=== PATIENT | female | born 1990 | race Caucasian/White ===

== ENCOUNTER → 2020-07-13 09:59 | Outpatient (CLI) | payer SELFPAY ==
--- NOTE | ~2020-07-13 | US_ITS ---
EXAMINATION: US breast LT limited HISTORY: Mastodynia TECHNIQUE: Limited left breast ultrasound was performed at the 9:00 location in the area of the patie nt's breast pain FINDINGS: There is no evidence of focal abnormal cystic or solid mass in the vicinity of the patient' s reported breast pain. IMPRESSION: No specific sonographic correlate is identified for the patient's breast pain. Further evaluation at this time should be based on clinical assessment. Continued follow-up physical examination is recomme nded. BI-RADS Category 1: Negative Reviewed, dictated and finalized at location A. IMPRESSION: No specific sonographic correlate is identified for the patient's breast pain. Further evaluation at this time should be based on clinical assessment. Continu ed follow-up physical examination is recommended. BI-RADS Category 1: Negative
== END ==
PROVIDERS: Visit Provider Obstetrics & Gynecology
DX: N64.4 Mastodynia (principal); R92.8 Other abnormal and inconclusive findings on diagnostic imaging of breast
CPT/HCPCS: 76642

== ENCOUNTER → 2021-04-28 12:24 | Outpatient (CLI) | payer OTHER, SELFPAY ==
--- NOTE | ~2021-04-28 | US_ITS ---
US renal BI 04/28/2021 12:57 Procedure: Realtime transabdominal ultrasound of the kidneys and bladder. Indication: Acute renal failure Comparison: No prior studies for comparison. Findings: Renal echotexture is normal bilaterally without contour deforming mass or renal calculus. T here is mild right hydronephrosis. The right kidney measures 9.8 cm and left kidney measures 9.7 cm. Bladder within normal limits. Bilateral ureteral jets are present. Impression: 1: Mild right hydronephrosis. Reviewed, dictated and finalized at location B. Impression: 1: Mild right hydronephrosis.
== END ==
PROVIDERS: PCP Physician Assistant; Visit Provider Physician Assistant
DX: N17.9 Acute kidney failure, unspecified (principal); N13.30 Unspecified hydronephrosis
CPT/HCPCS: 76775

== ENCOUNTER → 2021-05-23 14:08 | Outpatient (CLI) | payer OTHER, SELFPAY ==
--- NOTE | ~2021-05-23 | CT_ITS ---
EXAMINATION: CT abdomen pelvis wo/w con DATE: 05/23/2021 14:56 INDICATION: Hydronephrosis. TECHNIQUE: Computed tomography (CT) of the abdomen and pelvis was performed without and with 130 cc O mnipaque 350 intravenous contrast. The dose-length product was 953.08 mGy-cm. Automated exposure cont rol and iterative reconstruction technique were employed. COMPARISON: Ultrasound dated 04/28/2021. FINDINGS: Lung bases are unremarkable. Heart size normal. No significant pleural or pericardial effus ion. There is a right extrarenal pelvis. No significant hydronephrosis. No significant vascular abnor mality. No lymphadenopathy. Ureters are normal in course and caliber. No focal renal masses. Bladder is unremarkable. No significant pelvic masses or fluid collections. No free air or free fluid. The liver, spleen, pancreas, adrenal glands are unremarkable. Nonobstructive bowel gas pattern. No ev idence for hernia. No acute osseous abnormality. No renal stones. Gallbladder is present. IMPRESSION: 1. No significant hydronephrosis. Right extrarenal pelvis. Reviewed, dictated and finalized at location A.
[2021-05-23 14:32] LABS: Estimated Glomerular Filt Rate > 60
== END ==
PROVIDERS: PCP Physician Assistant; Visit Provider Physician Assistant
DX: N13.30 Unspecified hydronephrosis (principal); N17.9 Acute kidney failure, unspecified
CPT/HCPCS: 74178; Q9967

== ENCOUNTER → 2021-12-08 09:40 | Outpatient (CLI) | payer OTHER, SELFPAY ==
--- NOTE | ~2021-12-08 | US_ITS ---
US breast LT complete INDICATION: Left breast pain TECHNIQUE: Dedicated left breast ultrasound including all 4 quadrants in the subareolar location COMPARISON: Ultrasound dated 07/13/2020 FINDINGS: The left breast is composed of normal heterogeneous echotexture without focal solid or cyst ic mass. IMPRESSION: 1: Normal left breast ultrasound. BI-RADS CATEGORY 1 - NEGATIVE Reviewed, dictated and finalized at location A. [employer] MANAGER EDUCATION
== END ==
PROVIDERS: Visit Provider Nurse Practitioner
DX: N64.4 Mastodynia (principal)
CPT/HCPCS: 76641

== ENCOUNTER 2024-04-08 07:27 | Outpatient (CLI) | payer OTHER, SELFPAY ==
--- NOTE | ~2024-04-08 | XR_ITS ---
XR hand RT 2V DATE: 04/08/2024 07:58 INDICATION: Polyarthralgia TECHNIQUE: AP and lateral views COMPARISON: None FINDINGS: No fracture, dislocation, periosteal reaction or bone destruction, erosive change or any si gnificant joint space narrowing is noted. IMPRESSION: Negative Reviewed, dictated and finalized at location B. IMPRESSION: Negative
--- NOTE | ~2024-04-08 | XR_ITS ---
XR hand LT 2V DATE: 04/08/2024 07:58 INDICATION: Polyarthralgia TECHNIQUE: AP and lateral views COMPARISON: None FINDINGS: No fracture, dislocation, periosteal reaction or bone destruction. Joint spaces are well pr eserved. No erosive change or chondrocalcinosis. IMPRESSION: Negative Reviewed, dictated and finalized at location B. IMPRESSION: Negative
== END 2024-04-08 07:28 ==
PROVIDERS: PCP Physician Assistant; Visit Provider Physician Assistant
DX: M25.50 Pain in unspecified joint (principal)
CPT/HCPCS: 73120